=== PATIENT | male | born 1955 | race Caucasian/White ===

== ENCOUNTER 2020-03-07 11:40 | Outpatient (REF) | payer MEDICARE, MEDICAID, SELFPAY ==
--- NOTE | 2020-03-07 11:50 | XR_ITS ---
EXAMINATION: XR LUMBOSACRAL SPINE CLINICAL INFORMATION: Lumbago with sciatica COMPARISON: None TECHNIQUE: Three views of the lumbosacral spine. FINDINGS: There is no fracture or subluxation. Vertebral body height and alignment is maintained. Disc space narrowing is mild at L5-S1. Multilevel facet arthropathy. Small multilevel endplate osteophytes. The sacroiliac joints are symmetric. The sacrum appears intact. The bowel gas pattern is unremarkable. XR/XR lumbar spine 2-3V IMPRESSION: Mild multilevel degenerative changes of the lumbar spine.
== END 2020-03-07 11:41 | disposition home or self-care (01) ==
LOC: HO.XRAY 11:40
PROVIDERS: PCP Internal Medicine; Visit Provider Physician Assistant
DX: M54.41 Lumbago with sciatica, right side (principal)
CPT/HCPCS: 72100

== ENCOUNTER 2020-03-27 08:34 | Outpatient (REF) | payer MEDICARE, MEDICAID, SELFPAY ==
--- NOTE | 2020-03-27 | MR_ITS ---
EXAMINATION: MR LUMBAR SPINE WITHOUT CONTRAST CLINICAL INFORMATION: Lumbago. Sciatica. COMPARISON: Lumbar spine radiographs 03/05/2020. TECHNIQUE: MRI of the lumbar spine was obtained using routine sequences without contrast. FINDINGS: There is spinal scoliosis with a subtle leftward convex curvature centered at L3. Slight left lateral subluxation of L4 on L5. Alignment is otherwise normal in the sagittal dimension. Vertebral heights are preserved. No acute bone marrow signal changes. There is a slight loss of intervertebral disc height and T2 signal intensity at multiple levels related to disc degeneration. The tip of the conus medullaris is located at L1-L2. No mass effect on the conus. Visualized distal cord signal intensity is normal. At L1-L2 there is a shallow left central protrusion. Bilateral facet degenerative change. No canal stenosis. No mass effect on the traversing or foraminal nerve roots. At L2-L3 there is a small right subarticular protrusion superimposed upon an asymmetrically bulging disc to the left. Bilateral facet degenerative change. No canal stenosis. There is asymmetric narrowing of the right subarticular zone causing abutment and possible compression right traversing L3 nerve roots. No foraminal nerve root compression. At L3-L4 there is an asymmetrically bulging disc to the right. Bilateral facet degenerative change. No canal stenosis. No mass effect on the traversing or foraminal nerve roots. At L4-L5 there is a right subarticular protrusion superimposed upon a bulging disc. Bilateral facet degenerative change. Moderate canal stenosis. There is asymmetric narrowing of the right subarticular zone with compression right traversing L5 nerve roots. No foraminal nerve root compression. At L5-S1 there is a broad shallow central protrusion. Bilateral facet degenerative change. No canal stenosis. No substantial mass effect on the traversing or foraminal nerve roots. Limited visualization the retroperitoneal anatomy reveals no abnormal finding. Psoas and paraspinal muscle groups are symmetric. MR/MR lumbar spine wo con IMPRESSION: Multilevel degenerative spondylosis of the lumbar spine. There is a right subarticular protrusion at L4-L5 causing moderate canal stenosis and asymmetric compression of the right traversing L5 nerve roots. There is also a relatively tiny right subarticular protrusion at L2-L3 also causing abutment and possible compression right traversing L3 nerve roots as well.
== END 2020-03-27 08:35 | disposition home or self-care (01) ==
LOC: HO.MRI 08:34
PROVIDERS: Visit Provider Physician Assistant
DX: M54.41 Lumbago with sciatica, right side (principal)
CPT/HCPCS: 72148

== ENCOUNTER 2020-10-11 10:23 | Outpatient (REF) | payer MEDICARE, MEDICAID, SELFPAY ==
[2020-10-11 12:55] LABS: MANUAL DIFF FLAG NO
[2020-10-11 12:57] LABS: Basophils Percent Auto 0.5 % (0-2); Eosinophils Absolute Auto 0.2 X10*3/uL (0.0-0.4); Eosinophils Percent Auto 3.1 % (0-4); Hematocrit 49.1 % (42-52); Hemoglobin 16.4 g/dl (14.0-18.0); Imm Gran Abs Auto 0.02 X10*3/uL (0.00-0.03); Imm Gran Pct Auto 0.3 % (0.0-0.4); Lymphocytes Absolute Auto 1.7 X10*3/uL (1.2-4.9); Lymphocytes Percent Auto 27.1 % (20-40); Mean Corpuscular HGB Conc 33.4 g/dl (31.0-36.0); Mean Corpuscular Hemoglobin 31.4 pg (27.0-33.0); Mean Corpuscular Volume 94.1 fL (80-98); Mean Platelet Volume 11.2 fL (9.4-12.4); Monocytes Absolute Auto 0.8 X10*3/uL (0.1-1.2); Monocytes Percent Auto 12.9 % (2-11); Neutrophils Absolute Auto 3.6 X10*3/uL (2.0-8.3); Neutrophils Percent Auto 56.1 % (45-73); Platelet Count 264 X10*3/uL (160-400); Red Blood Count 5.22 X10*6/uL (4.60-5.80); Red Cell Distribution Width 13.6 % (11.0-16.0); White Blood Count 6.4 X10*3/uL (4.8-10.8)
[2020-10-11 13:35] LABS: Alanine Aminotransferase 28 U/L (0-40); Albumin Level 4.2 g/dL (3.5-5.0); Alkaline Phosphatase 73 U/L (39-117); Anion Gap 12 (12-20); Aspartate Amino Transferase 27 U/L (5-37); Bilirubin Total 0.6 mg/dL (0.0-1.0); Blood Urea Nitrogen 12 mg/dL (9-16); Calcium 9.4 mg/dL (8.4-10.2); Carbon Dioxide 27 mmol/L (22-29); Chloride 105 mmol/L (96-108); Cholesterol 321 mg/dL; Estimated Glomerular Filt Rate > 60; Glucose Fasting 105 mg/dL (60-99); HDL Cholesterol 57 mg/dL; LDL Cholesterol Calculated 229 mg/dl; Potassium 4.1 mmol/L (3.3-5.1); Sodium 140 mmol/L (135-145); Total Protein 7.4 g/dL (6.5-8.0); Triglycerides 176 mg/dL
[2020-10-11 13:55] LABS: Prostate Specific Antigen 0.75 ng/mL (<0.05-4.0)
== END 2020-10-11 10:24 | disposition home or self-care (01) ==
LOC: HO.MANLDS 10:23
PROVIDERS: PCP Internal Medicine; Visit Provider Internal Medicine
DX: Z00.00 Encounter for general adult medical examination without abnormal findings (principal); Z12.5 Encounter for screening for malignant neoplasm of prostate; Z13.6 Encounter for screening for cardiovascular disorders
CPT/HCPCS: 36415; 80053; 80061; 84153; 85025

== ENCOUNTER 2021-05-01 12:22 | Outpatient (REF) | payer MEDICARE, MEDICAID, SELFPAY ==
--- NOTE | ~2021-05-01 | XR_ITS ---
EXAMINATION: XR BILATERAL HIPS WITH AP PELVIS CLINICAL INFORMATION: Right hip pain COMPARISON: None TECHNIQUE: AP and frog-leg lateral views of each hip and an AP view of the pelvis. FINDINGS: No fracture or dislocation. The hips are well aligned. Mild joint space narrowing bilaterally with subchondral sclerosis. The pelvic rim is intact. The sacroiliac joints and pubic symphysis are well aligned. Normal bowel gas pattern. XR/XR hip BI w PEL1V IMPRESSION: Mild degenerative changes of both hips.
--- NOTE | ~2021-05-01 | XR_ITS ---
EXAMINATION: XR ANKLE, RIGHT CLINICAL INFORMATION: Right ankle pain COMPARISON: None TECHNIQUE: AP, lateral, and mortise views of the right ankle. FINDINGS: No fracture or dislocation. The ankle mortise is congruent. No definite ankle joint effusion. The soft tissues are unremarkable. Small Achilles heel spur. XR/XR ankle RT min 3V IMPRESSION: Small Achilles heel spur. Otherwise unremarkable appearance of the right ankle.
== END 2021-05-01 12:23 | disposition home or self-care (01) ==
LOC: HO.XRAY 12:22
PROVIDERS: PCP Internal Medicine; Visit Provider Internal Medicine
DX: M25.571 Pain in right ankle and joints of right foot (principal); M25.551 Pain in right hip
CPT/HCPCS: 73521; 73610

== ENCOUNTER 2021-07-06 11:25 | Emergency (ER) | payer MEDICARE, MEDICAID, SELFPAY ==
--- NOTE | ~2021-07-06 | CT_ITS ---
EXAMINATION: CT ABDOMEN AND PELVIS WITH CONTRAST CLINICAL INFORMATION: Abdominal hernia. Weight loss. COMPARISON: None TECHNIQUE: Multidetector volumetric images were obtained from the superior aspect of the liver through the pubic symphysis following administration 85 mL of Omnipaque 350 intravenous contrast. Sagittal and coronal reformatted images were obtained on the technologist's workstation. Oral contrast: No This CT examination was performed using dose optimization techniques as appropriate, variously including the following: *Automated exposure control *Adjustment of mA and/or kV according to patient size (this includes techniques or standardized protocols for targeted exams where dose is matched to indication/reason for exam; i.e. extremities or head) *Use of iterative reconstruction technique DLP: 349 mGy-cm FINDINGS: LUNG BASES: No suspicious abnormality in the visualized lower chest. The left ventricle appears mildly dilated. LIVER, GALLBLADDER, AND BILIARY TREE: There are several scattered tiny sharply circumscribed low attenuating liver lesions. No intrahepatic biliary dilation. The liver contour is smooth. No suspicious focal liver lesion. No opaque gallstone. No biliary dilation. PANCREAS: No suspicious abnormality. SPLEEN: Within normal limits ADRENAL GLANDS: Normal KIDNEYS AND URETERS: There is no dilation of the urinary collecting system on either side. The nephrograms are symmetric. There is no suspicious renal mass. There are tiny sharply circumscribed low attenuating right renal masses consistent with cysts. These do not require any further evaluation. No opaque urinary calculus. BLADDER: The bladder is nearly empty and not well evaluated. GASTROINTESTINAL TRACT: There are distal colonic diverticula. No localized pericolonic fat stranding. No small bowel dilation. The stomach is not well distended. There is a moderate diverticulum involving the medial aspect of the second portion of the duodenum. There is no CT evidence of appendicitis ABDOMINAL WALL: Evidence of previous midline surgery. No bowel hernia. LYMPH NODES: There are no measurably enlarged abdominal or pelvic lymph nodes. There is no free intraperitoneal fluid VASCULAR: There is atherosclerotic calcification. There is no abdominal aortic aneurysm. The portal vein enhances. There is no free intraperitoneal fluid PELVIC VISCERA: No suspicious abnormality the prostate. The seminal vesicles are distended but symmetric. OSSEOUS STRUCTURES: No suspicious focal lesion CT/CT abdomen pelvis w con IMPRESSION: No acute abnormality. There is no etiology for weight loss demonstrated. There are no enlarged lymph nodes or free intraperitoneal fluid. No bowel hernia demonstrated
[2021-07-06 12:28] VITALS: BP 160/92; PULSE 88; RESP 16; TEMP 36.2; O2SAT 98; BMI 19.0
[2021-07-06 12:55] LABS: MANUAL DIFF FLAG NO
[2021-07-06 12:58] LABS: Appearance Urine CLEAR; Basophils Percent Auto 0.5 % (0-2); Color Urine YELLOW; Eosinophils Absolute Auto 0.1 X10*3/uL (0.0-0.4); Eosinophils Percent Auto 0.7 % (0-4); Glucose Urine UA NEG (NEG); Hematocrit 53.1 % (42.0-52.0); Hemoglobin 17.5 g/dl (14.0-18.0); Imm Gran Abs Auto 0.01 X10*3/uL (0.00-0.03); Imm Gran Pct Auto 0.1 % (0.0-0.4); Leukocyte Esterase Urine NEG (NEG); Lymphocytes Absolute Auto 1.7 X10*3/uL (1.2-4.9); Lymphocytes Percent Auto 22.8 % (20-40); Mean Corpuscular Hemoglobin 30.9 pg (27.0-33.0); Mean Corpuscular Volume 93.7 fL (80.0-98.0); Mean Platelet Volume 10.6 fL (9.4-12.4); Monocytes Absolute Auto 0.9 X10*3/uL (0.1-1.2); Monocytes Percent Auto 11.9 % (2-11); Neutrophils Absolute Auto 4.8 x10*3/uL (2.0-8.3); Nitrite Urine NEG (NEG); Platelet Count 295 X10*3/uL (160-400); Red Blood Count 5.67 X10*6/uL (4.60-5.80); Red Cell Distribution Width 13.7 % (11.0-16.0); Specific Gravity - Urine >= 1.030 (1.005-1.025); UACC Culture Trigger NO; Urine Blood TRACE (NEG); Urine Ketones >=80 MG/DL (NEG); Urine Protein NEG (NEG-TRACE); White Blood Count 7.6 X10*3/uL (4.8-10.8)
[2021-07-06 13:06] LABS: RBC Urine 0-2 /HPF (0); Squamous Epithelial Cell Urine TRACE /LPF; WBC Urine 0 /HPF (0-4)
[2021-07-06 13:14] LABS: Anion Gap 15 (12-20); Blood Urea Nitrogen 10 mg/dL (9-16); Carbon Dioxide 29 mmol/L (22-29); Chloride 100 mmol/L (96-108); Creatinine Clr Calc Pharmacy 70.3; Estimated Glomerular Filt Rate > 60; Glucose Random 114 mg/dL (60-115); Sodium 139 mmol/L (135-145)
[2021-07-06 15:49] VITALS: BP 155/76; PULSE 58; RESP 20; TEMP 37.8; O2SAT 98
--- NOTE | 2021-07-06 15:50 | ED_ITS ---
HPI - General Adult General Chief complaint: General Medical <GISELLE Kingston - Last Filed: 07/06/21 18:45> Stated complaint: multiple pain crisis <GISELLE Kingston Last Filed: 07/06/21 18:45> Time Seen by Provider: 07/06/21 14:02 <GISELLE Kingston Last Filed: 07/06/21 18:45> Source: patient <GISELLE Kingston Last Filed: 07/06/21 18:45> Mode of arrival: ambulatory <GISELLE Kingston Last Filed: 07/06/21 18:45> History of Present Illness HPI narrative: 66-year-old male with past medical history of depression, yahaira, p resenting to the ED complaining of manic episode x a few weeks, acute on chronic abdominal pain due to known hernia, and diarrhe.a Reports decreased p.o. intake due to forgetting to eat, states he gets distracted in the middle of cooking and will leave stove on, has come back to his house full of smoke. Admits to 30lb weight loss in 6 weeks & decreased sleep. States hernia is reducible, self red uces. Denies fever, chills, nausea, vomiting, CP/SOB, SI/HI. Reports occasional ETOH and cocaine use, denies using recently <GISELLE Kingston Last Filed: 07/06/21 18:45> Onset (ago): week(s) <GISELLE Kingston Last Filed: 07/06/21 18:45> Related Data Allergies/adverse reactions: Allergies Allergy/AdvReac Type Severity Reaction Status Date / Time No Known Allergies Allergy Verified 07/06/21 12:28 [No Known Allergies*] <GISELLE Kingston Last Filed: 07/06/21 18:45> Review of Systems Review of Systems: Constitutional: + Weight loss, No Fever, No Chills, No Night Sweats, No Fatigue, No Malaise ENT/Mouth: No Ear Pain, No Nasal Congestion, No sore throat, No Rhinorrhea, No Swallowing Difficulty Eyes: No Eye Pain, No Swelling, No Redness Cardiovascular: No Chest Pain, No SOB, No Edema, No Palpitations Respiratory: No Cough, No Sputum, No Dyspnea Gastrointestinal: No Nausea, No Vomiting, + Diarrhea, No Constipation, + Abdominal pain Genitourinary: No irregular bleeding, No Dysuria, No Urinary Frequency, No Hematuria, No Flank Pain Musculoskeletal: No joint pain, No Myalgias, No Joint Swelling Skin: No Skin Lesions, No rash Neuro: No Weakness, No Numbness, No Dizziness, No Headache Psych: + Anxiety/Panic, +Manic, No Depression, No SI/HI/AH/VH, No Social Issues <GISELLE Kingston - Last Filed: 07/06/21 18:45> Yes all other systems are reviewed and are negative <GISELLE Kingston - Last Filed: 07/06/21 18:45> [facility] Past Medical History Attestation statement: The following information was validated with the patient. <GISELLE Kingston - Last Filed: 07/06/21 18:45> Medical History: Medical History Depression Hernia of abdominal wall History of scarlet fever Yahaira <GISELLE Kingston - Last Filed: 07/06/21 18:45> Social History Social History: Social History Advance Directives: No Advance Directives Information Provided: No <GISELLE Kingston - Last Filed: 07/06/21 18:45> Physical Exam ED Vital Signs: Vital Signs - 24 hr 07/06/21 12:28 07/06/21 15:49 07/06/21 17:18 Temperature 97.2 F 100.1 F 98.2 F Pulse Rate 88 58 60 Respiratory Rate 16 20 18 Blood Pressure 160/92 H 155/76 H 145/84 H Pulse Oximetry 98 98 95 07/06/21 19:45 Temperature 99.3 F Pulse Rate 91 Respiratory Rate 18 Blood Pressure 120/66 Pulse Oximetry 95 BMI result Body Mass Index 19.0 <GISELLE Kingston - Last Filed: 07/06/21 18:45> Vital Signs - 24 hr 07/06/21 12:28 07/06/21 15:49 07/06/21 17:18 Temperature 97.2 F 100.1 F 98.2 F Pulse Rate 88 58 60 Respiratory Rate 16 20 18 Blood Pressure 160/92 H 155/76 H 145/84 H Pulse Oximetry 98 98 95 07/06/21 19:45 Temperature 99.3 F Pulse Rate 91 Respiratory Rate 18 Blood Pressure 120/66 Pulse Oximetry 95 BMI result Body Mass Index 19.0 <GISELLE Hairston Last Filed: 07/06/21 22:20> Const General: cooperative and no acute distress <GISELLE Kingston Last Filed: 07/06/21 18:45> Nutritional Appearance: thin and underweight <GISELLE Kingston Last Filed: 07/06/21 18:45> Orientation/consciousness: patient oriented x3 <GISELLE Kingston Last Filed: 07/06/21 18:45> Limitations: no limitations <GISELLE Kingston Last Filed: 07/06/21 18:45> HENMT Head: Yes normal to inspection and Yes atraumatic <GISELLE Kingston Last Filed: 07/06/21 18:45> Ears: hearing grossly normal bilaterally <GISELLE Kingston Last Filed: 07/06/21 18:45> General nose exam: Normal external nose present <GISELLE Kingston Last Filed: 07/06/21 18:45> Face and sinus: Yes normal facial exam <GISELLE Kingston Last Filed: 07/06/21 18:45> Eyes General: appearance normal, both eyes and all related structures <GISELLE Kingston Last Filed: 07/06/21 18:45> EOM: EOMs intact bilaterally <GISELLE Kingston Last Filed: 07/06/21 18:45> Neck Neck: Yes normal visual inspection and Yes no meningeal signs <GISELLE Kingston Last Filed: 07/06/21 18:45> Resp Effort & Inspection: normal respiratory effort and no respiratory distress <GISELLE Kingston Last Filed: 07/06/21 18:45> Auscultation: clear to auscultation bilaterally, no rales, no rhonchi and no wheezes <GISELLE Kingston Last Filed: 07/06/21 18:45> Cardio Rate: regular rate <Yaneth Barth PA - Last Filed: 07/06/21 18:45> Heart sounds: S1 normal heart sound present and S2 normal heart sound present <Yaneth Barth PA - Last Filed: 07/06/21 18:45> GI Other: No appreciable hernia on exam <Yaneth Barth PA - Last Filed: 07/06/21 18:45> Inspection: Yes normal to inspection and No distended <Yaneth Barth PA - Last Filed: 07/06/21 18:45> Palpation (GI): Soft to palpation, Tenderness to palpation present (GI) in the LLQ and in the LUQ, no guarding and not rigid <Yaneth Barth PA - Last Filed: 07/06/21 18:45> General: Yes no CVA tenderness <Yaneth Barth, PA - Last Filed: 07/06/21 18:45> Back/Spine/Pelvis Back: no CVA tenderness <Yaneth Barth PA - Last Filed: 07/06/21 18:45> Skin Rashes: no rashes <Yaneth Barth PA - Last Filed: 07/06/21 18:45> Wounds: no wounds <Yaneth Barth PA - Last Filed: 07/06/21 18:45> Neuro General: patient oriented x3, tone normal, moves all extremities and no meningeal signs <Yaneth Barth PA - Last Filed: 07/06/21 18:45> Gait exam (Neuro): Normal gait present <Yaneth Barth PA - Last Filed: 07/06/21 18:45> Extrem General: Yes normal to inspection <Yaneth Barth PA - Last Filed: 07/06/21 18:45> Psych Appearance: well kempt <Yaneth Barth PA - Last Filed: 07/06/21 18:45> Speech and movement: Pressured speech present <Yaneth Barth PA - Last Filed: 07/06/21 18:45> Attitude: cooperative <Yaneth Barth PA - Last Filed: 07/06/21 18:45> Thought process: Racing thoughts present <Yaneth Barth PA - Last Filed: 07/06/21 18:45> Thought content: suicidality and no homicidality <GISELLE Kingston Last Filed: 07/06/21 18:45> Insight: Good insight present (Psych) <GISELLE Kingston Last Filed: 07/06/21 18:45> Judgement: Good judgement present (Psych) <GISELLE Kingston Last Filed: 07/06/21 18:45> Course Course Course Narrative: -no leukocytosis. Lactic acid negative. Labs otherwise unremarkable. UA negative -COVID-19 negative 1841--CT abdomen pelvis w con IMPRESSION: No acute abnormality. There is no etiology for weight loss demonstrated. There are no enlarged lymph nodes or free intraperitoneal fluid. No bowel hernia demonstrated? > patient is medically cleared for crisis evaluation. Physician observation initiated at [id number]--ED care transferred to GISELLE Valentin pending crisis eval <GISELLE Kingston Last Filed: 07/06/21 18:45> Reevaluation(s) Reevaluation #1: Was reported to me that patient wanted to leave. I was going to go speak to patient however by the time I got up to go speak to him patient eloped. He denied SI and HI to the nurse. And upon chart review it appears as though patient denied SI and HI to previous provider. <GISELLE Hairston - Last Filed: 07/06/21 22:20> Time: 22:20 <GISELLE Hairston - Last Filed: 07/06/21 22:20> Medical Decision Making [facility] Narrative Medical decision making narrative: 66-year-old male with past medical history of depression, yahaira, presenting to the ED complaining of manic episode x a few weeks, acute on chronic abdominal pain due to known hernia, and diarrhea. On exam vital signs stable, NAD, physical exam as above, patient appears manic, abdomen soft diffusely tender, no appreciable hernia at this time. Concern for anorexia causing weight loss rather than metastatic process. Rule out intra-abdominal pathology including diverticulitis/appendicitis vs incarcerated/strangulated hernia although of lower concern due to chronicity. Plan: Labs, UA, IVF, drug screen, CT abdomen/pelvis, crisis eval <GISELLE Kingston Last Filed: 07/06/21 18:45> Medical Records Medical records reviewed: Yes I reviewed the patient's medical records. <GISELLE Kingston - Last Filed: 07/06/21 18:45> Lab Data Lab results reviewed: Yes I reviewed the patient's lab results. <GISELLE Kingston - Last Filed: 07/06/21 18:45> Result diagrams: : 07/06/21 12:49 07/06/21 12:49 <GISELLE Kingston - Last Filed: 07/06/21 18:45> Labs: Lab Results 07/06/21 07/06/21 07/06/21 Range/Units 12:49 12:49 12:49 WBC 7.6 (4.8-10.8) X10*3/uL RBC 5.67 (4.60-5.80) X10*6/uL Hgb 17.5 (14.0-18.0) g/dl Hct 53.1 H (42.0-52.0) % MCV 93.7 (80.0-98.0) fL MCH 30.9 (27.0-33.0) pg MCHC 33.0 (31.0-36.0) g/dl RDW 13.7 (11.0-16.0) % Plt Count 295 (160-400) X10*3/uL MPV 10.6 (9.4-12.4) fL Immature Gran % (Auto) 0.1 (0.0-0.4) % Neut % (Auto) 64.0 (45-73) % Lymph % (Auto) 22.8 (20-40) % [place] % (Auto) 11.9 H (2-11) % Eos % (Auto) 0.7 (0-4) % Baso % (Auto) 0.5 (0-2) % Lymph # (Auto) 1.7 (1.2-4.9) X10*3/uL [place] # (Auto) 0.9 (0.1-1.2) X10*3/uL Eos # (Auto) 0.1 (0.0-0.4) X10*3/uL Baso # (Auto) 0.0 (0.0-0.2) X10*3/uL Abs Immat Gran (auto) 0.01 (0.00-0.03) X10*3/uL Absolute Neuts (auto) 4.8 (2.0-8.3) x10*3/uL Absolute Nucleated RBC 0.000 (0.0-0.012) X10*3/uL Nucleated RBC % (auto) 0.0 (0.0-0.2) /100WBC Sodium 139 (135-145) mmol/L Potassium 5.0 D (3.3-5.1) mmol/L Chloride 100 (96-108) mmol/L Carbon Dioxide 29 (22-29) mmol/L Anion Gap 15 (12-20) BUN 10 (9-16) mg/dL Creatinine 0.88 (0.5-1.4) mg/dL Estim Creat Clear Calc 70.3 Estimated GFR > 60 Random Glucose 114 (60-115) mg/dL Lactic Acid (0.5-2.0) mmol/L Calcium 10.0 D (8.4-10.2) mg/dL Magnesium 2.3 (1.6-2.6) mg/dL Total Bilirubin 0.8 (0.0-1.0) mg/dL Direct Bilirubin 0.3 (0.0-0.5) mg/dL AST 29 (5-37) U/L ALT 24 (0-40) U/L Alkaline Phosphatase 92 D (39-117) U/L Total Protein 7.6 (6.5-8.0) g/dL Albumin 4.2 (3.5-5.0) g/dL Lipase 23 (8-78) U/L Urine Color YELLOW Urine Appearance CLEAR Urine pH 6.0 (5.0-8.0) Ur Specific [place] >= 1.030 H (1.005-1.025) Urine Protein NEG (NEG-TRACE) MG/DL Urine Glucose (UA) NEG (NEG) MG/DL Urine Ketones >=80 (NEG) MG/DL Urine Blood TRACE (NEG) Urine Nitrite NEG (NEG) Ur Leukocyte Esterase NEG (NEG) Urine RBC 0-2 (0) /HPF Urine WBC 0 (0-4) /HPF Ur Squamous Epith Cells TRACE /LPF Urine Bacteria NONE /LPF COVID-19 (TESS) (Negative) COVID-19 Clin Com 07/06/21 07/06/21 Range/Units 15:43 15:57 WBC (4.8-10.8) X10*3/uL RBC (4.60-5.80) X10*6/uL Hgb (14.0-18.0) g/dl Hct (42.0-52.0) % MCV (80.0-98.0) fL MCH (27.0-33.0) pg MCHC (31.0-36.0) g/dl RDW (11.0-16.0) % Plt Count (160-400) X10*3/uL MPV (9.4-12.4) fL Immature Gran % (Auto) (0.0-0.4) % Neut % (Auto) (45-73) % Lymph % (Auto) (20-40) % [place] % (Auto) (2-11) % Eos % (Auto) (0-4) % Baso % (Auto) (0-2) % Lymph # (Auto) (1.2-4.9) X10*3/uL [place] # (Auto) (0.1-1.2) X10*3/uL Eos # (Auto) (0.0-0.4) X10*3/uL Baso # (Auto) (0.0-0.2) X10*3/uL Abs Immat Gran (auto) (0.00-0.03) X10*3/uL Absolute Neuts (auto) (2.0-8.3) x10*3/uL Absolute Nucleated RBC (0.0-0.012) X10*3/uL Nucleated RBC % (auto) (0.0-0.2) /100WBC Sodium (135-145) mmol/L Potassium (3.3-5.1) mmol/L Chloride (96-108) mmol/L Carbon Dioxide (22-29) mmol/L Anion Gap (12-20) BUN (9-16) mg/dL Creatinine (0.5-1.4) mg/dL Estim Creat Clear Calc Estimated GFR Random Glucose (60-115) mg/dL Lactic Acid 1.3 (0.5-2.0) mmol/L Calcium (8.4-10.2) mg/dL Magnesium (1.6-2.6) mg/dL Total Bilirubin (0.0-1.0) mg/dL Direct Bilirubin (0.0-0.5) mg/dL AST (5-37) U/L ALT (0-40) U/L Alkaline Phosphatase (39-117) U/L Total Protein (6.5-8.0) g/dL Albumin (3.5-5.0) g/dL Lipase (8-78) U/L Urine Color Urine Appearance Urine pH (5.0-8.0) Ur Specific [place] (1.005-1.025) Urine Protein (NEG-TRACE) MG/DL Urine Glucose (UA) (NEG) MG/DL Urine Ketones (NEG) MG/DL Urine Blood (NEG) Urine Nitrite (NEG) Ur Leukocyte Esterase (NEG) Urine RBC (0) /HPF Urine WBC (0-4) /HPF Ur Squamous Epith Cells /LPF Urine Bacteria /LPF COVID-19 (TESS) Negative (Negative) COVID-19 Clin Com See Note <GISELLE Kingston - Last Filed: 07/06/21 18:45> Lab Results 07/06/21 07/06/21 07/06/21 Range/Units 12:49 12:49 12:49 WBC 7.6 (4.8-10.8) X10*3/uL RBC 5.67 (4.60-5.80) X10*6/uL Hgb 17.5 (14.0-18.0) g/dl Hct 53.1 H (42.0-52.0) % MCV 93.7 (80.0-98.0) fL MCH 30.9 (27.0-33.0) pg MCHC 33.0 (31.0-36.0) g/dl RDW 13.7 (11.0-16.0) % Plt Count 295 (160-400) X10*3/uL MPV 10.6 (9.4-12.4) fL Immature Gran % (Auto) 0.1 (0.0-0.4) % Neut % (Auto) 64.0 (45-73) % Lymph % (Auto) 22.8 (20-40) % [place] % (Auto) 11.9 H (2-11) % Eos % (Auto) 0.7 (0-4) % Baso % (Auto) 0.5 (0-2) % Lymph # (Auto) 1.7 (1.2-4.9) X10*3/uL [place] # (Auto) 0.9 (0.1-1.2) X10*3/uL Eos # (Auto) 0.1 (0.0-0.4) X10*3/uL Baso # (Auto) 0.0 (0.0-0.2) X10*3/uL Abs Immat Gran (auto) 0.01 (0.00-0.03) X10*3/uL Absolute Neuts (auto) 4.8 (2.0-8.3) x10*3/uL Absolute Nucleated RBC 0.000 (0.0-0.012) X10*3/uL Nucleated RBC % (auto) 0.0 (0.0-0.2) /100WBC Sodium 139 (135-145) mmol/L Potassium 5.0 D (3.3-5.1) mmol/L Chloride 100 (96-108) mmol/L Carbon Dioxide 29 (22-29) mmol/L Anion Gap 15 (12-20) BUN 10 (9-16) mg/dL Creatinine 0.88 (0.5-1.4) mg/dL Estim Creat Clear Calc 70.3 Estimated GFR > 60 Random Glucose 114 (60-115) mg/dL Lactic Acid (0.5-2.0) mmol/L Calcium 10.0 D (8.4-10.2) mg/dL Magnesium 2.3 (1.6-2.6) mg/dL Total Bilirubin 0.8 (0.0-1.0) mg/dL Direct Bilirubin 0.3 (0.0-0.5) mg/dL AST 29 (5-37) U/L ALT 24 (0-40) U/L Alkaline Phosphatase 92 D (39-117) U/L Total Protein 7.6 (6.5-8.0) g/dL Albumin 4.2 (3.5-5.0) g/dL Lipase 23 (8-78) U/L Urine Color YELLOW Urine Appearance CLEAR Urine pH 6.0 (5.0-8.0) Ur Specific [place] >= 1.030 H (1.005-1.025) Urine Protein NEG (NEG-TRACE) MG/DL Urine Glucose (UA) NEG (NEG) MG/DL Urine Ketones >=80 (NEG) MG/DL Urine Blood TRACE (NEG) Urine Nitrite NEG (NEG) Ur Leukocyte Esterase NEG (NEG) Urine RBC 0-2 (0) /HPF Urine WBC 0 (0-4) /HPF Ur Squamous Epith Cells TRACE /LPF Urine Bacteria NONE /LPF COVID-19 (TESS) (Negative) COVID-19 Clin Com 07/06/21 07/06/21 Range/Units 15:43 15:57 WBC (4.8-10.8) X10*3/uL RBC (4.60-5.80) X10*6/uL Hgb (14.0-18.0) g/dl Hct (42.0-52.0) % MCV (80.0-98.0) fL MCH (27.0-33.0) pg MCHC (31.0-36.0) g/dl RDW (11.0-16.0) % Plt Count (160-400) X10*3/uL MPV (9.4-12.4) fL Immature Gran % (Auto) (0.0-0.4) % Neut % (Auto) (45-73) % Lymph % (Auto) (20-40) % [place] % (Auto) (2-11) % Eos % (Auto) (0-4) % Baso % (Auto) (0-2) % Lymph # (Auto) (1.2-4.9) X10*3/uL [place] # (Auto) (0.1-1.2) X10*3/uL Eos # (Auto) (0.0-0.4) X10*3/uL Baso # (Auto) (0.0-0.2) X10*3/uL Abs Immat Gran (auto) (0.00-0.03) X10*3/uL Absolute Neuts (auto) (2.0-8.3) x10*3/uL Absolute Nucleated RBC (0.0-0.012) X10*3/uL Nucleated RBC % (auto) (0.0-0.2) /100WBC Sodium (135-145) mmol/L Potassium (3.3-5.1) mmol/L Chloride (96-108) mmol/L Carbon Dioxide (22-29) mmol/L Anion Gap (12-20) BUN (9-16) mg/dL Creatinine (0.5-1.4) mg/dL Estim Creat Clear Calc Estimated GFR Random Glucose (60-115) mg/dL Lactic Acid 1.3 (0.5-2.0) mmol/L Calcium (8.4-10.2) mg/dL Magnesium (1.6-2.6) mg/dL Total Bilirubin (0.0-1.0) mg/dL Direct Bilirubin (0.0-0.5) mg/dL AST (5-37) U/L ALT (0-40) U/L Alkaline Phosphatase (39-117) U/L Total Protein (6.5-8.0) g/dL Albumin (3.5-5.0) g/dL Lipase (8-78) U/L Urine Color Urine Appearance Urine pH (5.0-8.0) Ur Specific [place] (1.005-1.025) Urine Protein (NEG-TRACE) MG/DL Urine Glucose (UA) (NEG) MG/DL Urine Ketones (NEG) MG/DL Urine Blood (NEG) Urine Nitrite (NEG) Ur Leukocyte Esterase (NEG) Urine RBC (0) /HPF Urine WBC (0-4) /HPF Ur Squamous Epith Cells /LPF Urine Bacteria /LPF COVID-19 (TESS) Negative (Negative) COVID-19 Clin Com See Note <GISELLE Hairston - Last Filed: 07/06/21 22:20> Discharge Plan Discharge Clinical Impression: Yahaira, Weight loss, Abdominal pain <GISELLE Kingston - Last Filed: 07/06/21 18:45> Patient Disposition: Elopement <GISELLE Kingston - Last Filed: 07/06/21 18:45>
[2021-07-06 15:57] LABS: Alanine Aminotransferase 24 U/L (0-40); Albumin Level 4.2 g/dL (3.5-5.0); Alkaline Phosphatase 92 U/L (39-117); Aspartate Amino Transferase 29 U/L (5-37); Bilirubin Direct 0.3 mg/dL (0.0-0.5); Bilirubin Total 0.8 mg/dL (0.0-1.0); Lipase 23 U/L (8-78); Magnesium 2.3 mg/dL (1.6-2.6); Total Protein 7.6 g/dL (6.5-8.0)
[2021-07-06 16:16] LABS: COVID-19 Test Negative (Negative); IDNOW Serial# 55D5AD1C
[2021-07-06 16:22] LABS: Lactic Acid 1.3 mmol/L (0.5-2.0)
[2021-07-06] MEDS: iohexoL 350 MG/ML 100 ML INFUS..BTL IV (16:40)
[2021-07-06 17:18] VITALS: BP 145/84; PULSE 60; RESP 18; TEMP 36.8; O2SAT 95
--- NOTE | 2021-07-06 17:20 | PC.NURSE ---
patient a&ox3, iv previously inserted, covid swab obtain, lab drawn, vss, pt had ct scan performed and awaiting results, will continue to monitor.
[2021-07-06] MEDS: Cyclobenzaprine HCl 5 MG TABLET PO (19:17)
--- NOTE | 2021-07-06 19:18 | PC.NURSE ---
pt medicated per order for 5/10 leg cramps
[2021-07-06 19:45] VITALS: BP 120/66; PULSE 91; RESP 18; TEMP 37.4; O2SAT 95
--- NOTE | 2021-07-06 19:46 | PC.NURSE ---
patient a7ox3, vss, pt previously medicated for bilateral leg cramps, call almanza within reach, will continue to monitor.
--- NOTE | 2021-07-06 22:23 | PC.NURSE ---
pt was upset for waiting, pt got dressed and stated he was going to so to be seen, provider notified, iv found on floor, pt eloped.
== END 2021-07-06 22:25 | disposition left against medical advice (07) ==
PROVIDERS: Physician Assistant; Emergency Provider Student in an Organized Health Care Education/Training Program; PCP Internal Medicine
DX: F33.1 Major depressive disorder, recurrent, moderate (principal); M79.10 Myalgia, unspecified site; R10.9 Unspecified abdominal pain; R63.4 Abnormal weight loss; Z20.822 Contact with and (suspected) exposure to COVID-19; Z79.899 Other long term (current) drug therapy
CPT/HCPCS: 36415; 74177; 80048; 80076; 81001; 83605; 83690; 83735; 85025; 87635; 99284; Q9967

== ENCOUNTER 2021-07-11 15:14 | Emergency (ER) | payer MEDICARE, MEDICAID, SELFPAY ==
[2021-07-11 15:31] VITALS: BP 160/90; BP 187/118; PULSE 105; PULSE 86; RESP 16; TEMP 37.2; O2SAT 99; BMI 26.9
--- NOTE | 2021-07-11 15:42 | ED.GENADULT ---
HPI - General Adult General Chief complaint: Psychiatric Symptoms Stated complaint: crisis eval Time Seen by Provider: 07/11/21 15:42 Source: patient Mode of arrival: ambulatory Limitations: no limitations History of Present Illness HPI narrative: Patient is a 66 year old male presenting to the emergency department today feeling manic. Patient states that he has a history of bipolar disorder and is living in his truck currently. Patient denies any dizziness, lightheadedness, abdominal pain, nausea, vomiting, fever, chills, blurry vision, double vision, loss of vision, chest pain, difficulty breathing, shortness of breath, back pain, night sweats, pain with urination, increased urinary frequency, increased urinary urgency, blood in his urine or stool, syncope or a near syncopal episode, recent trauma or falls, bowel incontinence, bladder incontinence, bowel retention, bladder retention, or any other complaints at this time. Patient denies any SI or HI at this time. Onset (ago): day(s) Relieving factors: none Exacerbating factors: none Associated symptoms: denies other symptoms Treatments prior to arrival: none Related Data Allergies Allergy/AdvReac Type Severity Reaction Status Date / Time No Known Allergies Allergy Verified 07/06/21 12:28 [No Known Allergies*] Review of Systems Constitutional: Constitutional: Reports no additional constitutional complaints, Denies chills, Denies fever(s) and Denies night sweats Eyes: Eyes: Reports no additional eye complaints, Denies blurry vision, Denies change in vision, Denies diplopia, Denies eye discharge, Denies loss of vision and Denies eye pain ENT: Denies dizziness Cardiovascular: Cardiovascular: Reports no additional cardiovascular complaints, Denies chest pain, Denies lightheadedness, Denies Loss of Consciousness and Denies dyspnea Respiratory: Respiratory: Reports no additional respiratory complaints and Denies dyspnea Gastrointestinal: Gastrointestinal: Reports no additional gastrointestinal complaints, Denies abdominal pain, Denies melena, Denies hematochezia, Denies change in bowel habits and Denies change in stool character Genitourinary: Genitourinary: Reports no additional male genitourinary complaints, Denies hematuria, Denies oliguria, Denies difficulty urinating, Denies dysuria, Denies urinary frequency, Denies urinary hesitancy, Denies urinary incontinence and Denies urinary urgency Musculoskeletal: Musculoskeletal: Reports no additional musculoskeletal complaints, Denies numbness and Denies tingling Neurologic: Reports behavioral changes, Denies dizziness, Denies loss of vision, Denies numbness and Denies tingling Psychiatric: Psychiatric: Reports behavioral changes Endocrine: Endocrine: Reports no additional endocrine complaints Hematologic/Lymphatic: Hematologic/Lymphatic: Reports no additional hematologic/lymphatic complaints Allergic/Immunologic: Allergic/Immunologic: Reports no additional allergic/immunologic complaints PMFSH Past Medical History Attestation statement: The following information was validated with the patient. Source: old records reviewed Medical History Depression Hernia of abdominal wall History of scarlet fever Christa Social History Social History Advance Directives: No Advance Directives Information Provided: No Physical Exam ED Vital Signs: Vital Signs - 24 hr 07/11/21 15:31 Temperature 99 F Pulse Rate 105 H Respiratory Rate 16 Blood Pressure 187/118 H Pulse Oximetry 99 BMI result Body Mass Index 26.9 Const General: cooperative, no acute distress, alert and awake Nutritional Appearance: well nourished Orientation/consciousness: patient oriented x3 Limitations: no limitations HENMT Head: Yes normal to inspection and Yes atraumatic Ears: hearing grossly normal bilaterally and external ears normal General nose exam: Normal external nose present, no nasal discharge noted and no epistaxis Face and sinus: Yes normal facial exam, No abrasion and No laceration Mouth: Normal oral and palatal mucosa present, no drooling and no muffled voice Eyes General: appearance normal, both eyes and all related structures Periorbital: periorbital findings normal Eyelids: Yes eyelids normal Conjunctivae: conjunctivae normal Pupils: Equal, round and reactive pupils present EOM: EOMs intact bilaterally Neck Neck: Yes normal visual inspection, Yes full ROM and Yes no lymphadenopathy Chest Chest palpation & inspection: normal inspection of the chest Resp Effort & Inspection: normal respiratory effort and able to speak in complete sentences Auscultation: clear to auscultation bilaterally Cardio Rate: regular rate Rhythm: regular rhythm GI Inspection: Yes normal to inspection Neuro General: patient oriented x3 and moves all extremities Cranial nerves: Yes Equal, round and reactive pupils present Cognition (Neuro): normal cognition Motor exam (neuro): 5/5 motor strength present throughout Sensory Exam: Normal double simultaneous stimulation for sensation Coordination: [id number] test normal Extrem General: Yes normal to inspection, Yes full ROM and Yes capillary refill normal Psych Appearance: grossly normal Mental Status: mental status grossly normal Affect: Animated affect present Attitude: cooperative Thought process: Flight of ideas present Thought content: Normal thought content present Insight: Good insight present (Psych) Medical Decision Making MDM Narrative Medical decision making narrative: Patient is a 66 year old male presenting to the emergency department today with a manic episode. Patient's physical exam showed an obviously manic individual. Patient's blood work was unremarkable. I explained my physical exam findings as well as all test results to the patient. I answered all questions asked by the patient. Patient entered physician observation at 1728. Patient is still awaiting N/Crisis evaluation. Differential Diagnosis Differential Diagnosis: christa, bipolar disorder Medical Records Medical records reviewed: Yes I reviewed the patient's medical records. Lab Data Lab results reviewed: Yes I reviewed the patient's lab results. Result diagrams: 07/11/21 16:09 07/11/21 16:09 Labs: Lab Results 07/11/21 07/11/21 07/11/21 Range/Units 16:09 16:09 16:09 WBC 6.9 (4.8-10.8) X10*3/uL RBC 5.33 (4.60-5.80) X10*6/uL Hgb 16.5 (14.0-18.0) g/dl Hct 49.2 (42.0-52.0) % MCV 92.3 (80.0-98.0) fL MCH 31.0 (27.0-33.0) pg MCHC 33.5 (31.0-36.0) g/dl RDW 13.6 (11.0-16.0) % Plt Count 245 (160-400) X10*3/uL MPV 10.5 (9.4-12.4) fL Immature Gran % (Auto) 0.4 (0.0-0.4) % Neut % (Auto) 61.2 (45-73) % Lymph % (Auto) 25.2 (20-40) % [place] % (Auto) 11.8 H (2-11) % Eos % (Auto) 0.7 (0-4) % Baso % (Auto) 0.7 (0-2) % Lymph # (Auto) 1.7 (1.2-4.9) X10*3/uL [place] # (Auto) 0.8 (0.1-1.2) X10*3/uL Eos # (Auto) 0.1 (0.0-0.4) X10*3/uL Baso # (Auto) 0.1 (0.0-0.2) X10*3/uL Abs Immat Gran (auto) 0.03 (0.00-0.03) X10*3/uL Absolute Neuts (auto) 4.2 (2.0-8.3) x10*3/uL Absolute Nucleated RBC 0.000 (0.0-0.012) X10*3/uL Nucleated RBC % (auto) 0.0 (0.0-0.2) /100WBC Sodium 139 (135-145) mmol/L Potassium 4.2 (3.3-5.1) mmol/L Chloride 102 (96-108) mmol/L Carbon Dioxide 29 (22-29) mmol/L Anion Gap 12 (12-20) BUN 15 (9-16) mg/dL Creatinine 0.81 (0.5-1.4) mg/dL Estim Creat Clear Calc 92.6 Estimated GFR > 60 Random Glucose 100 (60-115) mg/dL Calcium 9.8 (8.4-10.2) mg/dL Total Bilirubin 0.3 (0.0-1.0) mg/dL AST 29 (5-37) U/L ALT 24 (0-40) U/L Alkaline Phosphatase 71 D (39-117) U/L Total Protein 7.0 (6.5-8.0) g/dL Albumin 4.0 (3.5-5.0) g/dL Urine Opiates Screen (Not Detect) Urine Fentanyl Screen (Not Detect) Ur Barbiturates Screen (Not Detect) Ur Phencyclidine Scrn (Not Detect) Ur Amphetamines Screen (Not Detect) U Benzodiazepines Scrn (Not Detect) Urine Cocaine Screen (Not Detect) U Marijuana (THC) Screen (Not Detect) Ethyl Alcohol < 10 mg/dL COVID-19 (TESS) (Negative) COVID-19 Clin Com 07/11/21 07/11/21 Range/Units 16:09 16:09 WBC (4.8-10.8) X10*3/uL RBC (4.60-5.80) X10*6/uL Hgb (14.0-18.0) g/dl Hct (42.0-52.0) % MCV (80.0-98.0) fL MCH (27.0-33.0) pg MCHC (31.0-36.0) g/dl RDW (11.0-16.0) % Plt Count (160-400) X10*3/uL MPV (9.4-12.4) fL Immature Gran % (Auto) (0.0-0.4) % Neut % (Auto) (45-73) % Lymph % (Auto) (20-40) % [place] % (Auto) (2-11) % Eos % (Auto) (0-4) % Baso % (Auto) (0-2) % Lymph # (Auto) (1.2-4.9) X10*3/uL [place] # (Auto) (0.1-1.2) X10*3/uL Eos # (Auto) (0.0-0.4) X10*3/uL Baso # (Auto) (0.0-0.2) X10*3/uL Abs Immat Gran (auto) (0.00-0.03) X10*3/uL Absolute Neuts (auto) (2.0-8.3) x10*3/uL Absolute Nucleated RBC (0.0-0.012) X10*3/uL Nucleated RBC % (auto) (0.0-0.2) /100WBC Sodium (135-145) mmol/L Potassium (3.3-5.1) mmol/L Chloride (96-108) mmol/L Carbon Dioxide (22-29) mmol/L Anion Gap (12-20) BUN (9-16) mg/dL Creatinine (0.5-1.4) mg/dL Estim Creat Clear Calc Estimated GFR Random Glucose (60-115) mg/dL Calcium (8.4-10.2) mg/dL Total Bilirubin (0.0-1.0) mg/dL AST (5-37) U/L ALT (0-40) U/L Alkaline Phosphatase (39-117) U/L Total Protein (6.5-8.0) g/dL Albumin (3.5-5.0) g/dL Urine Opiates Screen Not Detected (Not Detect) Urine Fentanyl Screen Not Detected (Not Detect) Ur Barbiturates Screen Not Detected (Not Detect) Ur Phencyclidine Scrn Not Detected (Not Detect) Ur Amphetamines Screen Not Detected (Not Detect) U Benzodiazepines Scrn Not Detected (Not Detect) Urine Cocaine Screen Not Detected (Not Detect) U Marijuana (THC) Screen POSITIVE H (Not Detect) Ethyl Alcohol mg/dL COVID-19 (TESS) Negative (Negative) COVID-19 Clin Com See Note Discharge Plan Discharge Clinical Impression: Bipolar disorder Patient Disposition: Still a Patient Instructions: Bipolar Disorder (ED) Print Language: Syrian
[2021-07-11] MEDS: LORazepam 1 MG TABLET 2 MG PO (16:04)
[2021-07-11 16:17] LABS: MANUAL DIFF FLAG NO
[2021-07-11 16:18] LABS: Basophils Absolute Auto 0.1 X10*3/uL (0.0-0.2); Basophils Percent Auto 0.7 % (0-2); Eosinophils Absolute Auto 0.1 X10*3/uL (0.0-0.4); Eosinophils Percent Auto 0.7 % (0-4); Hematocrit 49.2 % (42.0-52.0); Hemoglobin 16.5 g/dl (14.0-18.0); Imm Gran Abs Auto 0.03 X10*3/uL (0.00-0.03); Imm Gran Pct Auto 0.4 % (0.0-0.4); Lymphocytes Absolute Auto 1.7 X10*3/uL (1.2-4.9); Lymphocytes Percent Auto 25.2 % (20-40); Mean Corpuscular HGB Conc 33.5 g/dl (31.0-36.0); Mean Corpuscular Volume 92.3 fL (80.0-98.0); Mean Platelet Volume 10.5 fL (9.4-12.4); Monocytes Absolute Auto 0.8 X10*3/uL (0.1-1.2); Monocytes Percent Auto 11.8 % (2-11); Neutrophils Absolute Auto 4.2 x10*3/uL (2.0-8.3); Neutrophils Percent Auto 61.2 % (45-73); Platelet Count 245 X10*3/uL (160-400); Red Blood Count 5.33 X10*6/uL (4.60-5.80); Red Cell Distribution Width 13.6 % (11.0-16.0); White Blood Count 6.9 X10*3/uL (4.8-10.8)
[2021-07-11 16:34] LABS: Alanine Aminotransferase 24 U/L (0-40); Alkaline Phosphatase 71 U/L (39-117); Anion Gap 12 (12-20); Aspartate Amino Transferase 29 U/L (5-37); Bilirubin Total 0.3 mg/dL (0.0-1.0); Blood Urea Nitrogen 15 mg/dL (9-16); Calcium 9.8 mg/dL (8.4-10.2); Carbon Dioxide 29 mmol/L (22-29); Chloride 102 mmol/L (96-108); Creatinine Clr Calc Pharmacy 92.6; Estimated Glomerular Filt Rate > 60; Glucose Random 100 mg/dL (60-115); Potassium 4.2 mmol/L (3.3-5.1); Sodium 139 mmol/L (135-145)
[2021-07-11 16:35] LABS: COVID-19 Test Negative (Negative)
[2021-07-11 16:37] LABS: Ethanol < 10 mg/dL
[2021-07-11 16:40] LABS: Amphetamine Screen Urine Not Detected (Not Detect); Barbiturates, Urine Not Detected (Not Detect); Benzodiazepines Screen Urine Not Detected (Not Detect); Cannabinoid Screen Urine POSITIVE (Not Detect); Cocaine Screen Urine Not Detected (Not Detect); Fentanyl, urine Not Detected (Not Detect); Opiate Screen Urine Not Detected (Not Detect); Phencyclidine Screen Urine Not Detected (Not Detect)
[2021-07-12 01:29] VITALS: BP 141/96; PULSE 87; RESP 17; TEMP 36.4; O2SAT 98
[2021-07-12 04:00] VITALS: RESP 17
--- NOTE | 2021-07-12 06:17 | PC.NURSE ---
Patient slept through the night, no distress observed/reported, BHN assessed the patient unable to get hold the brother, disposition is WANG F/U in the morning, behavior appropriate, patient currently not on any medication, VSS, will continue to monitor.
[2021-07-12 07:36] VITALS: RESP 17
--- NOTE | 2021-07-12 08:10 | PC.NURSE ---
pt is sleeping resp even and unlabored.
--- NOTE | 2021-07-12 09:15 | PC.NURSE ---
pt is a/o x 3 no sob/khalida noted. pt amb (i) gait steady to bathroom. denies any si/hi.
--- NOTE | 2021-07-12 11:54 | PC.NURSE ---
bhn at bedside, pt aware of plan of care.
[2021-07-12 11:57] VITALS: BP 116/77; PULSE 78; TEMP 37.1; O2SAT 98
--- NOTE | 2021-07-12 13:54 | PC.NURSE ---
per n - psych consult/eval then discharge to outpatient urgent care(n).
== END 2021-07-12 14:56 | disposition home or self-care (01) ==
PROVIDERS: Physician Assistant Medical; Emergency Provider Emergency Medicine
DX: F31.10 Bipolar disorder, current episode manic without psychotic features, unspecified (principal); Z20.822 Contact with and (suspected) exposure to COVID-19; Z59.02 Unsheltered homelessness
CPT/HCPCS: 36415; 80053; 80307; 82077; 85025; 87635; 99284

== ENCOUNTER 2021-08-13 10:51 | Emergency (ER) | payer MEDICARE, MEDICAID, SELFPAY ==
[2021-08-13 11:09] VITALS: BP 134/82; PULSE 90; RESP 18; TEMP 36.9; O2SAT 98; BMI 17.9
--- NOTE | 2021-08-13 11:14 | ECG_ITS ---
Test Reason : weakness Blood Pressure : / mmHG Vent. Rate : 081 BPM Atrial Rate : 081 BPM P-R Int : 148 ms QRS Dur : 084 ms QT Int : 360 ms P-R-T Axes : 074 093 055 degrees QTc Int : 418 ms Normal sinus rhythm Rightward axis Borderline ECG No previous ECGs available Referred By: Generic ED Physician Electronically Signed By:Des Collins
[2021-08-13 11:26] LABS: Basophils Percent Auto 0.3 % (0-2); Eosinophils Percent Auto 0.4 % (0-4); Hematocrit 49.1 % (42.0-52.0); Hemoglobin 16.7 g/dl (14.0-18.0); Imm Gran Abs Auto 0.03 X10*3/uL (0.00-0.03); Imm Gran Pct Auto 0.4 % (0.0-0.4); Lymphocytes Absolute Auto 1.5 X10*3/uL (1.2-4.9); Lymphocytes Percent Auto 19.2 % (20-40); MANUAL DIFF FLAG NO; Mean Corpuscular Hemoglobin 31.4 pg (27.0-33.0); Mean Corpuscular Volume 92.3 fL (80.0-98.0); Mean Platelet Volume 11.2 fL (9.4-12.4); Monocytes Percent Auto 13.2 % (2-11); Neutrophils Absolute Auto 5.2 x10*3/uL (2.0-8.3); Neutrophils Percent Auto 66.5 % (45-73); Platelet Count 203 X10*3/uL (160-400); Red Blood Count 5.32 X10*6/uL (4.60-5.80); Red Cell Distribution Width 13.2 % (11.0-16.0); White Blood Count 7.9 X10*3/uL (4.8-10.8)
[2021-08-13 11:48] LABS: Anion Gap 16 (12-20); Blood Urea Nitrogen 16 mg/dL (9-16); Calcium 9.5 mg/dL (8.4-10.2); Carbon Dioxide 22 mmol/L (22-29); Chloride 105 mmol/L (96-108); Creatinine Clr Calc Pharmacy 67.7; Estimated Glomerular Filt Rate > 60; Glucose Random 114 mg/dL (60-115); Potassium 4.4 mmol/L (3.3-5.1); Sodium 139 mmol/L (135-145)
== END 2021-08-13 17:34 | disposition left against medical advice (07) ==
PROVIDERS: Emergency Provider Emergency Medicine; PCP Internal Medicine
DX: R41.3 Other amnesia (principal); R53.1 Weakness; R63.4 Abnormal weight loss
CPT/HCPCS: 36415; 80048; 85025; 93005; 99281; 99282; 99283

== ENCOUNTER 2021-11-08 10:40 | Outpatient (REF) | payer MEDICARE, MEDICAID, SELFPAY ==
[2021-11-08 11:11] LABS: MANUAL DIFF FLAG NO
[2021-11-08 11:43] LABS: Basophils Percent Auto 0.8 % (0-2); Eosinophils Absolute Auto 0.1 X10*3/uL (0.0-0.4); Eosinophils Percent Auto 2.7 % (0-4); Hematocrit 47.7 % (42.0-52.0); Imm Gran Abs Auto 0.02 X10*3/uL (0.00-0.03); Imm Gran Pct Auto 0.4 % (0.0-0.4); Lymphocytes Absolute Auto 1.3 X10*3/uL (1.2-4.9); Lymphocytes Percent Auto 25.3 % (20-40); Mean Corpuscular HGB Conc 33.5 g/dl (31.0-36.0); Mean Corpuscular Volume 95.4 fL (80.0-98.0); Monocytes Absolute Auto 0.7 X10*3/uL (0.1-1.2); Monocytes Percent Auto 13.2 % (2-11); Neutrophils Percent Auto 57.6 % (45-73); Platelet Count 232 X10*3/uL (160-400); Red Cell Distribution Width 13.7 % (11.0-16.0); White Blood Count 5.2 X10*3/uL (4.8-10.8)
[2021-11-08 12:12] LABS: Alanine Aminotransferase 17 U/L (0-40); Albumin Level 3.9 g/dL (3.5-5.0); Alkaline Phosphatase 70 U/L (39-117); Anion Gap 14 (12-20); Aspartate Amino Transferase 21 U/L (5-37); Bilirubin Total 0.2 mg/dL (0.0-1.0); Blood Urea Nitrogen 11 mg/dL (9-16); Calcium 9.1 mg/dL (8.4-10.2); Carbon Dioxide 30 mmol/L (22-29); Chloride 100 mmol/L (96-108); Estimated Glomerular Filt Rate > 60; Glucose Random 94 mg/dL (60-115); Potassium 4.9 mmol/L (3.3-5.1); Sodium 139 mmol/L (135-145)
[2021-11-08 12:34] LABS: Thyroid Stimulating Hormone 1.02 uIU/mL (0.32-4.0)
[2021-11-08 12:43] LABS: Erythrocyte Sedimentation Rate 2 MM/HR (0-15)
== END 2021-11-08 10:41 | disposition home or self-care (01) ==
LOC: HO.LAB 10:40
PROVIDERS: PCP Internal Medicine; Visit Provider Internal Medicine
DX: R63.4 Abnormal weight loss (principal)
CPT/HCPCS: 36415; 80053; 84443; 85025; 85652

== ENCOUNTER 2023-09-22 15:46 | Outpatient (REF) | payer MEDICARE, MEDICAID, SELFPAY ==
[2023-09-22 17:55] LABS: MANUAL DIFF FLAG NO
[2023-09-22 18:03] LABS: Basophils Percent Auto 0.4 % (0-2); Eosinophils Absolute Auto 0.1 X10*3/uL (0.0-0.4); Hematocrit 49.1 % (42.0-52.0); Hemoglobin 16.8 g/dl (14.0-18.0); Imm Gran Abs Auto 0.01 X10*3/uL (0.00-0.03); Imm Gran Pct Auto 0.1 % (0.0-0.4); Lymphocytes Absolute Auto 1.4 X10*3/uL (1.2-4.9); Lymphocytes Percent Auto 19.6 % (20-40); Mean Corpuscular HGB Conc 34.2 g/dl (31.0-36.0); Mean Corpuscular Volume 96.5 fL (80.0-98.0); Mean Platelet Volume 11.4 fL (9.4-12.4); Monocytes Absolute Auto 0.9 X10*3/uL (0.1-1.2); Monocytes Percent Auto 12.2 % (2-11); Neutrophils Absolute Auto 4.6 x10*3/uL (2.0-8.3); Neutrophils Percent Auto 66.7 % (45-73); Platelet Count 247 X10*3/uL (160-400); Red Blood Count 5.09 X10*6/uL (4.60-5.80); Red Cell Distribution Width 13.6 % (11.0-16.0)
[2023-09-22 18:23] LABS: Alanine Aminotransferase 19 U/L (0-40); Albumin Level 4.1 g/dL (3.5-5.0); Alkaline Phosphatase 76 U/L (39-117); Anion Gap 15 (12-20); Aspartate Amino Transferase 24 U/L (5-37); Bilirubin Total 0.4 mg/dL (0.0-1.0); Blood Urea Nitrogen 13 mg/dL (9-16); Calcium 9.7 mg/dL (8.4-10.2); Carbon Dioxide 25 mmol/L (22-29); Chloride 106 mmol/L (96-108); Estimated Glomerular Filt Rate > 60; Glucose Random 141 mg/dL (60-115); Potassium 3.8 mmol/L (3.3-5.1); Sodium 142 mmol/L (135-145); Total Protein 7.5 g/dL (6.5-8.0)
[2023-09-22 18:39] LABS: Free T4 (Free Thyroxine) 0.89 ng/dL (0.71-1.85); Thyroid Stimulating Hormone 1.23 uIU/mL (0.32-4.0)
[2023-09-22 19:04] LABS: Folate 13.8 ng/mL (> or = 4.0); Prostate Specific Antigen 0.89 ng/mL (<0.05-4.0); Vitamin B12 800 pg/mL (200-900)
== END 2023-09-22 15:47 | disposition home or self-care (01) ==
LOC: HO.MANLDS 15:46
PROVIDERS: Visit Provider Internal Medicine
DX: E78.00 Pure hypercholesterolemia, unspecified (principal); R41.3 Other amnesia; Z12.5 Encounter for screening for malignant neoplasm of prostate
CPT/HCPCS: 36415; 80053; 82607; 82746; 84153; 84439; 84443; 85025

== ENCOUNTER 2024-03-29 15:22 | Emergency (ER) | payer MEDICARE, MEDICAID, SELFPAY ==
--- NOTE | ~2024-03-29 | XR_ITS ---
CLINICAL HISTORY: fracture? Three views of the right foot. Findings: No acute fracture or dislocation is seen. There is a probable old fracture of the 3rd metatarsal. There is minimal hallux valgus. A small posterior calcaneal spur is present. Impression: No acute fracture is identified. This document has been electronically signed by: Kaleb Duarte MD on 03/29/2024 17:39:39
--- NOTE | ~2024-03-29 | XR_ITS ---
CLINICAL HISTORY: ankle pain Three views of the right ankle. Comparison 05/01/2021. Findings: No acute fractures are seen. There is no dislocation. Mild posterior calcaneal spurring is present. Impression: No acute bony abnormality is identified. This document has been electronically signed by: Kaleb Duarte MD on 03/29/2024 17:38:50
[2024-03-29 16:07] VITALS: BP 163/75; PULSE 93; RESP 20; TEMP 36.9; O2SAT 97; BMI 21.5
--- NOTE | 2024-03-29 16:11 | ED.GENADULT ---
HPI - General Adult General Chief complaint: Extremity Problem Stated complaint: R ankle pain Time Seen by Provider: 03/29/24 19:03 Source: patient Mode of arrival: ambulatory Limitations: no limitations History of Present Illness ED Provider: Dr. Eli Kilpatrick HPI narrative: patient comes to the emergency room complaining of chronic right ankle pain. Patient states that he did not hurt his ankle. Patient states rehab but I can not in that his right ankle has been hurting since he started riding bicycle. Patient states that he rides between 150 and 200 miles per week because for medical reasons his license got suspended. Patient states that in the past he has had severe pain in the dorsum of the foot with redness but it is not the case today. Patient denies being diagnosed with gout Related Data Previous Rx's ?Medication ?Instructions ?Recorded naproxen 250 mg tablet 250 mg PO BID PRN pain #30 tabs 03/29/24 Allergies Allergy/AdvReac Type Severity Reaction Status Date / Time No Known Allergies Allergy Verified 03/29/24 16:09 [No Known Allergies*] Review of Systems Review of Systems: Constitutional : No Weight loss, No Fever, No Chills, No Night Sweats, No Fatigue, No Malaise ENT/Mouth : No Hearing loss, No Ear Pain, No Nasal Congestion, No Sinus Pain, No Hoarseness, No sore throat, No Rhinorrhea, No Swallowing Difficulty Eyes: No Eye Pain, No Swelling, No Redness, No Foreign Body, No Discharge, No Vision Changes Cardiovascular : No Chest Pain, No SOB, No Dyspnea on Exertion, No Orthopnea, No Edema, No Palpitations Respiratory : No Cough, No Sputum, No Wheezing, No Smoke Exposure, No Dyspnea Gastrointestinal : No Nausea, No Vomiting, No Diarrhea, No Constipation, No abdominal Pain, No Hematochezia, No Melena Genitourinary : no irregular bleeding, No Dysuria, No Urinary Frequency, No Hematuria, No Urinary Incontinence, No Urgency, No Flank Pain, No Urinary Flow Changes, No Hesitancy Musculoskeletal : patient complaining of chronic right ankle pain, no myalgias, No Joint Swelling Skin : No Skin Lesions, No rash Neuro : No Weakness, No Numbness, No Paresthesias, No Loss of Consciousness, No Dizziness, No Headache Psych : No Anxiety/Panic, No Depression, No SI/HI/AH/VH, No Social Issues, Heme/Lymph: No Bruising, No Bleeding,No Lymphadenopathy Endocrine : No Polyuria, No Polydipsia, No Temperature Intolerance [facility] Past Medical History Medical History History of scarlet fever Hernia of abdominal wall Christa Depression Social History Social History Advance Directives: No Advance Directives Information Provided: No Physical Exam ED Vital Signs: Vital Signs - 24 hr 03/29/24 16:07 03/29/24 19:17 03/29/24 19:42 Temperature 98.5 F 98.2 F 98.2 F Pulse Rate 93 82 82 Respiratory Rate 20 20 20 Blood Pressure 163/75 H 155/93 H 155/93 H Pulse Oximetry 97 95 95 Oxygen Delivery Method Room Air Room Air Room Air BMI result Body Mass Index 21.5 Const Other: Appearance: Alert. Oriented X3. No acute distress. Eyes: Pupils equal, round and reactive to light. ENT: Pharynx normal. Neck: Normal inspection. Neck supple. No lymph nodes noted. No crepitus CVS: Normal heart rate and rhythm. Pulses normal. Normal S1 and S2 Respiratory: No respiratory distress. Breath sounds normal. No Wheezing. No rales Abdomen: Soft and nontender. No rigidity. No distention. Skin: Skin warm and dry. Normal skin color. Normal skin turgor. Extremities: No lower extremity edema. No Lacerations. No Rash. Right ankle within normal limits, no swelling, no erythema, normal range of motion. Patient able to bear weight and walk Neuro: Oriented X 3. No motor deficit. No sensory deficit. Moving all extremities. No slurred speech. CN 2 through 12 grossly intact Psych: calm, cooperative, normal affect Course Course Course Narrative: RME: 69-year-old male presents to ED for right ankle pain. Stay right and bite for many miles. Patient denies any leg swelling, calf pain, leg cramping. Physical exam positive for right lateral malleolus tenderness without any tenderness or ecchymosis or deformity. Vascular motor neuro exam intact. X-ray ordered. Medications Administered Discontinued Medications Generic Name Dose Route Start Last Admin Trade Name Freq PRN Reason Stop Dose Admin Naproxen 500 mg 03/29/24 19:29 03/29/24 19:41 Naproxen 500 Mg Tablet PO 03/29/24 19:30 500 mg ONCE ONE Administration Medical Decision Making Medical Decision Making MDM Narrative: my interpretation of x-ray, no acute fractures I discussed the x-ray with the patient. Most likely, patient has arthritis, patient states that he noted that the pain has been getting worse since he started riding bicycles so much. Patient was given p.o. naproxen. Patient mentioned that sometimes his foot gets very red and swollen only on the dorsum. I discussed with the patient to follow-up with his PCP, as he may have undiagnosed gout but not today. Independent Interpretation I performed an independent interpretation of an: Plain X-Ray Radiology Impression Discussion of test interpretation with radiology: I have reviewed the radiologist's reading. Radiologist Impression: No acute fracture or dislocation is seen. There is a probable old fracture of the 3rd metatarsal. There is minimal hallux valgus. A small posterior calcaneal spur is present. No acute fractures are seen. There is no dislocation. Mild posterior calcaneal spurring is present. Discharge Plan Discharge Clinical Impression: Arthralgia Patient Disposition: Home, Self-Care Instructions: Arthralgia (ED) Additional Instructions: Please follow-up with your primary care physician tomorrow. If you have any worsening or new symptoms, please return to the emergency room or call 911 Prescriptions: New naproxen 250 mg tablet 250 mg PO BID PRN (Reason: pain) Qty: 30 0RF Interventions: ED Discharge Assessment Last Done: 03/29/24 19:42 Discharge Date/Time: 03/29/24 19:43 Print Language: Divehi
[2024-03-29 19:17] VITALS: BP 155/93; PULSE 82; RESP 20; TEMP 36.8; O2SAT 95
[2024-03-29] MEDS: NaPROXEN 500 MG TABLET PO (19:41)
[2024-03-29 19:42] VITALS: BP 155/93; PULSE 82; RESP 20; TEMP 36.8; O2SAT 95
== END 2024-03-29 19:43 | disposition home or self-care (01) ==
PROVIDERS: Emergency Provider Emergency Medicine; PCP Internal Medicine
DX: M25.571 Pain in right ankle and joints of right foot (principal)
CPT/HCPCS: 73600; 73620; 99283; 99284

== ENCOUNTER → 2024-03-29 16:10 | Outpatient (BNV) | payer MEDICARE, MEDICAID, SELFPAY | PROVIDERS: PCP Internal Medicine; Visit Provider Radiology Diagnostic Radiology | DX: M25.571 Pain in right ankle and joints of right foot (principal) | CPT/HCPCS: 73600; 73620 ==

== ENCOUNTER 2024-04-02 11:24 | Emergency (ER) | payer MEDICARE, MEDICAID, SELFPAY ==
--- NOTE | 2024-04-02 11:31 | ED_ITS ---
HPI - General Adult General Chief complaint: Psychiatric Symptoms Stated complaint: CRISIS Time Seen by Provider: 04/02/24 11:31 History of Present Illness ED Provider: Julian DALE narrative: The patient is a 69-year-old male who arrives at the emergency room today by ambulance from his primary care doctor's office in [place]. The patient is homeless. He says that he has a history of psychiatric illness but can not specify what psychiatric illness he has. He says he has been psychiatrically hospitalized in the past but can not tell me what treatment he received. He says he was last psychiatrically hospitalized at this hospital about 10 years ago. He says he has done well since then. He is homeless and I think he has been homeless for some time. For about 3 weeks he has been staying at a [facility] residential in [place]. He says that things are quite chaotic at the residential and he is not happy there. He feels that he is I had becoming more confused and disorganized living at the residential. Today he felt that he ought to come to the emergency room with a goal of seeking a voluntary psychiatric hospitalization. The patient says that he is so disorganized in his thinking that he came here 4 days ago on March 29 by taxi with a goal hospitalized. However once he got here he mentioned some ankle pain and ended up being evaluated for his ankle pain. He says this distracted him from his psychiatric concerns and he never mentioned his psychiatric concerns when he was here the other day. Old records indicate that he has a history of manic depression/bipolar disorder but the patient was not able to articulate these problems. The patient is not currently on any medications. He says he stopped smoking about 20 years ago. He says that he has not had any alcohol for a few months. He denies any street drug use. Related Data Home Medications ?Medication ?Instructions ?Recorded ?Confirmed No Known Home Meds 04/02/24 04/02/24 Allergies Allergy/AdvReac Type Severity Reaction Status Date / Time No Known Allergies Allergy Verified 04/02/24 11:55 [No Known Allergies*] Review of Systems 2 Review of Systems: Yes all other systems are reviewed and are negative PMFSH Past Medical History Medical History History of scarlet fever Hernia of abdominal wall Christa Depression Social History Social History Alcohol intake: current Smoked in Last 30 Days: No Use of substances other than those prescribed or required for medical reasons: No Advance Directives: No Advance Directives Information Provided: Yes Physical Exam ED Vital Signs: Vital Signs - 24 hr 04/02/24 11:54 04/02/24 11:56 Temperature 98.2 F Pulse Rate 82 Respiratory Rate 16 18 Blood Pressure 138/72 Pulse Oximetry 98 Oxygen Delivery Method Room Air BMI result Body Mass Index 21.5 Const Other: The patient is awake and alert, pleasant cooperative. He is in no apparent distress. HENMT Other: The face is symmetrical. ?Mucous membranes moist. Eyes Other: Pupils are round equal, conjunctivae are clear, extraocular movements intact Neck Neck: Yes full ROM Resp Effort & Inspection: normal respiratory effort Auscultation: clear to auscultation bilaterally GI Other: Abdomen is soft and nontender Skin Other: Skin is dry and unremarkable Neuro Other: The patient is awake, alert, oriented, appropriate. Cranial nerves 2 through 12 are intact.. He moves his extremities normally and appropriately with normal coordination and sensation. He has a normal gait Extrem Other: No peripheral edema Psych Other: The patient is awake and alert. The makes good eye contact. He is mildly unkempt. He seems somewhat disorganized but without jose thought disorder. Medical Decision Making Medical Decision Making MDM Narrative: The patient is here on a voluntary basis because of concern about his mental health. He is hoping to be hospitalized to ?straighten out my mind.? He does not seem to have any acute medical concerns. The patient's medical testing in the emergency room today is unremarkable. The patient is medically clear for evaluation and disposition by the care team. The patient will be placed in physician observation. Lab Data 04/02/24 12:17 04/02/24 12:17 Labs: Lab Results 04/02/24 04/02/24 Range/Units 12:16 12:17 WBC 6.5 (4.8-10.8) X10*3/uL RBC 4.45 L (4.60-5.80) X10*6/uL Hgb 14.6 (14.0-18.0) g/dl Hct 42.1 (42.0-52.0) % MCV 94.6 (80.0-98.0) fL MCH 32.8 (27.0-33.0) pg MCHC 34.7 (31.0-36.0) g/dl RDW 12.7 (11.0-16.0) % Plt Count 231 (160-400) X10*3/uL MPV 10.4 (9.4-12.4) fL Immature Gran % (Auto) 0.3 (0.0-0.4) % Neut % (Auto) 74.7 H (45-73) % Lymph % (Auto) 13.4 L (20-40) % [place] % (Auto) 10.6 (2-11) % Eos % (Auto) 0.5 (0-4) % Baso % (Auto) 0.5 (0-2) % Lymph # (Auto) 0.9 L (1.2-4.9) X10*3/uL [place] # (Auto) 0.7 (0.1-1.2) X10*3/uL Eos # (Auto) 0.0 (0.0-0.4) X10*3/uL Baso # (Auto) 0.0 (0.0-0.2) X10*3/uL Abs Immat Gran (auto) 0.02 (0.00-0.03) X10*3/uL Absolute Neuts (auto) 4.8 (2.0-8.3) x10*3/uL Absolute Nucleated RBC 0.000 (0.0-0.012) X10*3/uL Nucleated RBC % (auto) 0.0 (0.0-0.2) /100WBC Sodium 142 (135-145) mmol/L Potassium 3.8 (3.3-5.1) mmol/L Chloride 110 H (96-108) mmol/L Carbon Dioxide 29 (22-29) mmol/L Anion Gap 7 L (12-20) BUN 17 H (9-16) mg/dL Creatinine 0.84 (0.5-1.4) mg/dL Estim Creat Clear Calc 79.8 Estimated GFR > 60 Random Glucose 112 (60-115) mg/dL Calcium 8.4 D (8.4-10.2) mg/dL Magnesium 2.0 (1.6-2.6) mg/dL Total Bilirubin 0.3 (0.0-1.0) mg/dL Direct Bilirubin 0.1 (0.0-0.5) mg/dL AST 31 (5-37) U/L ALT 27 (0-40) U/L Alkaline Phosphatase 107 (39-117) U/L Total Protein 6.7 (6.5-8.0) g/dL Albumin 3.6 (3.5-5.0) g/dL Urine Color Yellow Urine Appearance Clear Urine pH 5.5 (5.0-9.0) Ur Specific [place] 1.025 (1.005-1.025) Urine Protein Negative (Neg-Trace) mg/dL Urine Glucose (UA) Negative (Negative) mg/dL Urine Ketones Negative (Negative) mg/dL Urine Blood Negative (Negative) Urine Nitrite Negative (Negative) Ur Leukocyte Esterase Negative (Negative) Salicylates < 5.0 L (15-30) mg/dL Urine Opiates Screen Not Detected (Not Detect) Ur Buprenorphine Scrn Not Detected (Not Detect) ng/mL Ur Oxycodone Screen Not Detected (Not Detect) ng/mL Urine Methadone Screen Not Detected (Not Detect) ng/mL Urine Fentanyl Screen Not Detected (Not Detect) Acetaminophen < 3 (<30) mcg/mL Ur Barbiturates Screen Not Detected (Not Detect) Ur Phencyclidine Scrn Not Detected (Not Detect) Ur Amphetamines Screen Not Detected (Not Detect) U Benzodiazepines Scrn Not Detected (Not Detect) Urine Cocaine Screen Not Detected (Not Detect) U Marijuana (THC) Screen POSITIVE H (Not Detect) Ethyl Alcohol < 10 mg/dL Influenza Type A (PCR) NEGATIVE (Negative) Influenza Type B (PCR) NEGATIVE (Negative) RSV RNA Qual (PCR) NEGATIVE (Negative) SARS-CoV-2 RNA (RT-PCR) NEGATIVE (Negative) Independent Interpretation I performed an independent interpretation of an: EKG Interpretation: EKG at 12:30 shows normal sinus rhythm at 60 beats per minute. It is a normal EKG. No change from previous. Discharge Plan Discharge Clinical Impression: Bipolar disorder Patient Disposition: Still a Patient Prescriptions: No Action No Known Home Meds Interventions: [place]-Suicide Risk Severity Scale Last Done: 04/02/24 11:56 Print Language: Hungarian
--- NOTE | 2024-04-02 11:36 | ECG_ITS ---
Test Reason : CP Blood Pressure : */* mmHG Vent. Rate : 60 BPM Atrial Rate : 60 BPM P-R Int : 134 ms QRS Dur : 78 ms QT Int : 398 ms P-R-T Axes : 103 70 64 degrees QTcB Int : 398 ms Normal sinus rhythm Normal ECG When compared with ECG of 13-Aug-2021 11:12, No significant change was found Referred By: Abraham Jordan Electronically Signed By: FARIDEH CHONG
[2024-04-02 11:40] VITALS: BP 136/85; PULSE 80; O2SAT 97
[2024-04-02 11:54] VITALS: BP 138/72; PULSE 82; RESP 16; TEMP 36.8; O2SAT 98; BMI 21.5
[2024-04-02 11:56] VITALS: RESP 18
[2024-04-02 12:26] LABS: MANUAL DIFF FLAG NO
[2024-04-02 12:27] LABS: Basophils Percent Auto 0.5 % (0-2); Eosinophils Percent Auto 0.5 % (0-4); Hematocrit 42.1 % (42.0-52.0); Hemoglobin 14.6 g/dl (14.0-18.0); Imm Gran Abs Auto 0.02 X10*3/uL (0.00-0.03); Imm Gran Pct Auto 0.3 % (0.0-0.4); Lymphocytes Absolute Auto 0.9 X10*3/uL (1.2-4.9); Lymphocytes Percent Auto 13.4 % (20-40); Mean Corpuscular HGB Conc 34.7 g/dl (31.0-36.0); Mean Corpuscular Hemoglobin 32.8 pg (27.0-33.0); Mean Corpuscular Volume 94.6 fL (80.0-98.0); Mean Platelet Volume 10.4 fL (9.4-12.4); Monocytes Absolute Auto 0.7 X10*3/uL (0.1-1.2); Monocytes Percent Auto 10.6 % (2-11); Neutrophils Absolute Auto 4.8 x10*3/uL (2.0-8.3); Neutrophils Percent Auto 74.7 % (45-73); Platelet Count 231 X10*3/uL (160-400); Red Blood Count 4.45 X10*6/uL (4.60-5.80); Red Cell Distribution Width 12.7 % (11.0-16.0); White Blood Count 6.5 X10*3/uL (4.8-10.8)
[2024-04-02 12:30] LABS: Appearance Urine Clear; Color Urine Yellow; Glucose Urine UA Negative (Negative); Leukocyte Esterase Urine Negative (Negative); Nitrite Urine Negative (Negative); PH 5.5 (5.0-9.0); Specific Gravity - Urine 1.025 (1.005-1.025); Urine Blood Negative (Negative); Urine Ketones Negative (Negative); Urine Protein Negative (Neg-Trace)
[2024-04-02 12:38] LABS: Amphetamine Screen Urine Not Detected (Not Detect); Barbiturates, Urine Not Detected (Not Detect); Benzodiazepines Screen Urine Not Detected (Not Detect); Buprenorphine Scr Not Detected (Not Detect); Cannabinoid Screen Urine POSITIVE (Not Detect); Cocaine Screen Urine Not Detected (Not Detect); Fentanyl, urine Not Detected (Not Detect); Methadone Screen, Urine Not Detected (Not Detect); Opiate Screen Urine Not Detected (Not Detect); Oxycodone Screen Urine Not Detected (Not Detect); Phencyclidine Screen Urine Not Detected (Not Detect)
[2024-04-02 12:41] LABS: Ethanol < 10 mg/dL
[2024-04-02 12:44] LABS: Alanine Aminotransferase 27 U/L (0-40); Albumin Level 3.6 g/dL (3.5-5.0); Alkaline Phosphatase 107 U/L (39-117); Anion Gap 7 (12-20); Aspartate Amino Transferase 31 U/L (5-37); Bilirubin Direct 0.1 mg/dL (0.0-0.5); Bilirubin Total 0.3 mg/dL (0.0-1.0); Blood Urea Nitrogen 17 mg/dL (9-16); Calcium 8.4 mg/dL (8.4-10.2); Carbon Dioxide 29 mmol/L (22-29); Chloride 110 mmol/L (96-108); Creatinine Clr Calc Pharmacy 79.8; Estimated Glomerular Filt Rate > 60; Glucose Random 112 mg/dL (60-115); Potassium 3.8 mmol/L (3.3-5.1); Sodium 142 mmol/L (135-145); Total Protein 6.7 g/dL (6.5-8.0)
[2024-04-02 12:47] LABS: Acetaminophen LAB < 3 mcg/mL (<30); Salicylate < 5.0 mg/dL (15-30)
[2024-04-02 13:19] LABS: Influenza A PCR NEGATIVE (Negative); Influenza B PCR NEGATIVE (Negative); Resp Syncy Virus RNA Qual PCR NEGATIVE (Negative); SARS COV2 PCR INHOUSE NEGATIVE (Negative)
--- NOTE | 2024-04-02 19:13 | MHC.CARE ---
Pt assessed by the CARE Team and is an ACCS bedsearch. Attempted to call [facility] but number was not in service at this time. [facility] provided their fax as well as [facility]'s fax [facility] Referrals were faxed over to both locations and were received. CARE Team will continue to follow-up on the status of these referrals.
[2024-04-03 03:01] VITALS: BP 155/83; PULSE 58; RESP 16; TEMP 36.4; O2SAT 97
[2024-04-03 07:05] VITALS: PULSE 86; RESP 16; O2SAT 98
--- NOTE | 2024-04-03 07:05 | PC.NURSE ---
Assumed care of patient at 0645, patient appears to be sleeping, respirations even and unlabored, no apparent distress noted. Continue plan of care for respite bedsearch
[2024-04-03 08:12] VITALS: BP 151/88; PULSE 77; RESP 16; TEMP 36.6; O2SAT 98
--- NOTE | 2024-04-03 09:48 | MHC.CARE ---
Fax sent to [facility] in [place] for pt as they have available beds.
--- NOTE | 2024-04-03 12:17 | MHC.CARE ---
Contacted [facility] @[phone], referral is activated and currently in review. Spoke with Darvin
[2024-04-03 15:43] VITALS: BP 136/84; PULSE 91; RESP 16; TEMP 36.8; O2SAT 99
== END 2024-04-03 15:55 | disposition home or self-care (01) ==
PROVIDERS: Emergency Provider Emergency Medicine; PCP Internal Medicine
DX: F31.9 Bipolar disorder, unspecified (principal); R07.89 Other chest pain; Z59.00 Homelessness unspecified; Z51.81 Encounter for therapeutic drug level monitoring; Z79.899 Other long term (current) drug therapy; Z03.818 Encounter for observation for suspected exposure to other biological agents ruled out
CPT/HCPCS: 0241U; 36415; 80048; 80076; 80143; 80179; 80307; 81003; 83735; 85025; 93005; 99285; S9485

== ENCOUNTER → 2024-04-02 11:36 | Outpatient (BNV) | payer MEDICARE, MEDICAID, SELFPAY | PROVIDERS: Emergency Provider Emergency Medicine; PCP Internal Medicine; Visit Provider Internal Medicine | DX: R07.9 Chest pain, unspecified (principal) | CPT/HCPCS: 93010 ==

== ENCOUNTER 2024-05-28 11:05 | Outpatient (REF) | payer MEDICARE, MEDICAID, SELFPAY ==
--- OUTSIDE RECORDS SUMMARY | 2024-05-28 12:51 | XMS_ITS | Clinical Summary ---
Author Organization [facility] Address [address] [place] [address] Care Team Providers Care Academic Affairs Coordinator Name Role Phone PcpWindy Unassigned Primary Care Provider Karen Smith Unavailable Unavailable Medications cyclobenzaprine (Flexeril) 5 MG tablet Take 5 mg by mouth if needed in the morning, at noon, and at bedtime. 03/19/2022 Active Social History Tobacco Use Types Packs/Day Years Used Date Smoking Tobacco: Never Assessed Alcohol Answer Date Recorded How often do you have a drink containing alcohol ? 4 03/03/2023 How many drinks containing a lcohol do you have on a typical day when you are drinking? 1 03/03/2023 How often do you have six or more drinks on one occasion? 0 03/03/2023 Housing Stability Answer Date Recorded What is your housing situation today? I do not have housing (Staying with others, in a hotel, in a intermediate, living outside on the street, on a beach, in a car, or in a park 02/26/[address] you li ve. Do you have problems with any of the following? Not on file 02/26/2024 Food Insecurity Answer Date Recorded Within the past 12 months, y ou worried that your food would run out before you got money to buy more: Never True 02/26/2024 Within the past 12 months,th e food you bought just didn't last and you didn't have enough money to get more: Never True 07/2023 Transportation Answer Date Recorded In the past 12 months, has l ack of transportation kept you from medical appts, meetings, work or from getting things needed for daily living? I am not sure 02/26/2024 Intimate Partner Violence Answer Date R ecorded Within the last year, have y ou been afraid of your partner or ex-partner? 2 03/03/2023 Within the last year, have y ou been humiliated or emotionally abused in other ways by your partner or ex-partner? 2 Within the last year, have y ou been kicked, hit, slapped, or otherwise physically hurt by your partner or ex-partner? 2 03/03/2023 Within the last year, have y ou been raped or forced to have any kind of sexual activity by your partner or ex-partner? 2 03/03/2023 Utilities Answer Date Recorded In the past 12 months, has t he [employer], [employer], [employer] or water [employer] threatened to shut off services in your home? I am not sure 02/26/2024 Sex and Gender Information Value Date Recorded Sex Assigned at Male 07/22/2022 1:25 PM EDT Legal Sex Male 1:24 PM EDT Gender Identity Male 07/22/2022 1:25 PM EDT Sexual Orientation Straight 07/22/2022 1: 25 PM EDT Plan of Treatment Health Maintenance Due Date Last Done Comments CT Colonography 1955 Colonoscopy 1955 Colorectal Cancer Screening 1955 Depression Screening 1955 FIT DNA/Cologuard 1955 FIT 1955 FOBT 1955 Lipid Panel 1955 SDOH Screening 1955 Sigmoidoscopy 1955 Alcohol/Substance Use Screening 1967 Tobacco Screening 1967 Hepatitis C Screening 1973 Pneumococcal Vaccine: 50+ Years (1 of 1 - PCV) 2005 COVID-19 Vaccine ( - 2023-2 5 season) 2023 Influenza Vaccine (#1) 2023 DTaP/Tdap/Td Vaccines (2 - T d or Tdap) 08/14/2028 08/14/2018 RSV Patients and Patients Aged 60 years or older (1 - 1-dose 75+ series) 2030 Zoster Vaccines Completed 09/24/2019, 03/23/2019 HIB Vaccines Aged Out No longer eligi ble based on patient's age to complete this topic HPV Vaccines Aged Out No longer eligi ble based on patient's age to complete this topic Hepatitis A Vaccines Aged Out No long er eligible based on patient's age to complete this topic Hepatitis B Vaccines Aged Out No long er eligible based on patient's age to complete this topic IPV Vaccines Aged Out No longer eligi ble based on patient's age to complete this topic Meningococcal Vaccine Aged Out No aubree ashok eligible based on patient's age to complete this topic RSV under 20 months Aged Out No longe r eligible based on patient's age to complete this topic Rotavirus Vaccines Aged Out No longer eligible based on patient's age to complete this topic Care Teams Academic Affairs Coordinator Relationship Specialty Start Date End Date Windy Jones Unassigned PCP - General Family Medicine 07/22/22 Karen Almanza Community Health Worker 03/27/23
[2024-05-28 13:36] LABS: MANUAL DIFF FLAG NO
[2024-05-28 13:40] LABS: Basophils Percent Auto 0.4 % (0-2); Eosinophils Percent Auto 0.1 % (0-4); Hematocrit 46.5 % (42.0-52.0); Hemoglobin 15.5 g/dl (14.0-18.0); Imm Gran Abs Auto 0.01 X10*3/uL (0.00-0.03); Imm Gran Pct Auto 0.1 % (0.0-0.4); Lymphocytes Absolute Auto 1.2 X10*3/uL (1.2-4.9); Lymphocytes Percent Auto 15.1 % (20-40); Mean Corpuscular HGB Conc 33.3 g/dl (31.0-36.0); Mean Corpuscular Hemoglobin 31.3 pg (27.0-33.0); Mean Corpuscular Volume 93.9 fL (80.0-98.0); Mean Platelet Volume 11.1 fL (9.4-12.4); Monocytes Absolute Auto 0.8 X10*3/uL (0.1-1.2); Monocytes Percent Auto 9.6 % (2-11); Neutrophils Absolute Auto 6.1 x10*3/uL (2.0-8.3); Neutrophils Percent Auto 74.7 % (45-73); Platelet Count 254 X10*3/uL (160-400); Red Blood Count 4.95 X10*6/uL (4.60-5.80); Red Cell Distribution Width 13.1 % (11.0-16.0); White Blood Count 8.2 X10*3/uL (4.8-10.8)
[2024-05-28 14:14] LABS: Alanine Aminotransferase 17 U/L (0-40); Albumin Level 4.1 g/dL (3.5-5.0); Alkaline Phosphatase 89 U/L (39-117); Anion Gap 12 (12-20); Aspartate Amino Transferase 27 U/L (5-37); Bilirubin Total 0.7 mg/dL (0.0-1.0); Blood Urea Nitrogen 13 mg/dL (9-16); Calcium 9.1 mg/dL (8.4-10.2); Carbon Dioxide 26 mmol/L (22-29); Chloride 105 mmol/L (96-108); Estimated Glomerular Filt Rate > 60; Glucose Random 114 mg/dL (60-115); Sodium 139 mmol/L (135-145); Thyroid Stimulating Hormone 0.92 uIU/mL (0.32-4.0)
[2024-05-28 14:18] LABS: Vitamin B12 553 pg/mL (200-900)
== END 2024-05-28 11:06 | disposition home or self-care (01) ==
LOC: HO.MANLDS 11:05
PROVIDERS: Visit Provider Internal Medicine
DX: R41.82 Altered mental status, unspecified (principal)
CPT/HCPCS: 36415; 80053; 82607; 84443; 85025

== ENCOUNTER 2024-11-08 14:32 | Outpatient (REF) | payer MEDICARE, MEDICAID, SELFPAY ==
--- OUTSIDE RECORDS SUMMARY | 2024-11-08 15:16 | XMS_ITS | Encounter Summary ---
Author Organization [facility] Address [address] [place] [address] Phone Care Team Providers Care Hand Cutter Name Role Phone Stan Trinidad Primary Care Provider [phone] Encounter Details Date Type Department Care Team (Late st Contact Info) Description 07/09/2021 Procedure Pass [facility], Ct Scan - [facility] [address] [place] [address] Social History Tobacco Use Types Packs/Day Years Used Date Smoking Tobacco: Never Smokeless Tobacco: Never Alcohol Use Standard Drinks/Week Comments Yes 0 (1 standard drink = 0.6 oz pur e alcohol) 1-2 beer month Sex and Gender Information Value Date Recorded Sex Assigned at Male 10/26/2017 1:50 PM EDT Legal Sex Male 9:55 PM EDT Gender Identity Male 10/26/2017 1:50 PM EDT Sexual Orientation Straight 10/26/2017 1: 50 PM EDT documented as of this encounter Functional Status * Calculated C-SSRS Risk Score (Lifetime/Recent) Answer Date of Assessment Author No Risk Indicated 07/12/2021 11:02 PM EDT Ivelisse High RN * [place] Suicide Severity Rating Scale (Screener/Recent Self-Report) Question Answer Date of Assessment Author 1. Wish to be (Past 1 Month) No 022 11:02 PM EDT Ivelisse Elias, YESSENIA 2. Non-Specific Active Suici rebecca Thoughts (Past 1 Month) No 07/12/2021 11:02 PM EDT Elina Elias, RN 6. Suicidal Behavior (Lifetime) No 2 11:02 PM EDT Ivelisse Elias RN documented as of this encounter Plan of Treatment Not on file documented as of this encounter Visit Diagnoses Not on filedocumented in this encounter Care Teams Hand Cutter Relationship Specialty Start Date End Date Stan Trinidad DO [email or web address] PCP - General 01/07/17 documented as of this encounter Additional Source Comments The information contained in this document represents components of the legal health record. It is not the complete legal health record.[facility]
--- OUTSIDE RECORDS SUMMARY | 2024-11-08 15:16 | XMS_ITS | Clinical Summary ---
Author Organization [employer] Address [address] [place] [address] Care Team Providers Care Entry Specialist Name Role Phone PcpWindy Unassigned Primary Care Provider Karen Smith Unavailable Unavailable Medications cyclobenzaprine (Flexeril) 5 MG tablet Take 5 mg by mouth if needed in the morning, at noon, and at bedtime. 03/19/2022 Active Encounters Date Type Department Care Team Description 11/01/2024 [facility] [address] [place] [address] Akanksha Chahal W - EBT card replacement asistance from Last 3 Months Social History Tobacco Use Types Packs/Day Years [...] with others, in a hotel, in a assisted, living outside on the street, on a [...] the past 12 months, has t he [employer], [employer], oil or water company threatened to shut off services in your [...] 2023-2 5 season) 2023 Influenza Vaccine (#1) 2024 DTaP/Tdap/Td Vaccines (2 - T d or [...] patient's age to complete this topic Meningococcal B Vaccine Aged Out No l onger eligible based on patient's age to complete this topic Meningococcal Vaccine Aged Out No aubree ashok eligible based on patient's age to complete this topic RSV under 20 months Aged Out No longe r eligible based on patient's age to complete this topic Rotavirus Vaccines Aged Out No longer eligible based on patient's age to complete this topic Care Teams Entry Specialist Relationship Specialty Start Date End Date Windy Jones Unassigned PCP - General Family Medicine 07/22/22 Karen Almanza Community Health Worker 03/27/23
[2024-11-08 19:01] LABS: MANUAL DIFF FLAG NO
[2024-11-08 19:04] LABS: Hematocrit 44.8 % (42.0-52.0); Hemoglobin 15.2 g/dl (14.0-18.0); Imm Gran Abs Auto 0.02 X10*3/uL (0.00-0.03); Imm Gran Pct Auto 0.3 % (0.0-0.4); Lymphocytes Absolute Auto 1.4 X10*3/uL (1.2-4.9); Mean Corpuscular HGB Conc 33.9 g/dl (31.0-36.0); Mean Corpuscular Hemoglobin 31.7 pg (27.0-33.0); Mean Corpuscular Volume 93.3 fL (80.0-98.0); NRBC Abs Auto 0.000 X10*3/uL (0.0-0.012); NRBC Pct Auto 0.0 /100WBC (0.0-0.2); Platelet Count 241 X10*3/uL (160-400); Red Blood Count 4.80 X10*6/uL (4.60-5.80); White Blood Count 7.7 X10*3/uL (4.8-10.8)
[2024-11-08 19:28] LABS: Alanine Aminotransferase 23 U/L (0-40); Albumin Level 4.0 g/dL (3.5-5.0); Alkaline Phosphatase 80 U/L (39-117); Anion Gap 12 (12-20); Aspartate Amino Transferase 29 U/L (5-37); Blood Urea Nitrogen 15 mg/dL (9-16); Calcium 9.0 mg/dL (8.4-10.2); Carbon Dioxide 30 mmol/L (22-29); Chloride 103 mmol/L (96-108); Estimated Glomerular Filt Rate > 60; Potassium 3.9 mmol/L (3.3-5.1); Sodium 141 mmol/L (135-145); Total Protein 7.1 g/dL (6.5-8.0)
[2024-11-08 19:37] LABS: Thyroid Stimulating Hormone 2.58 uIU/mL (0.32-4.0)
[2024-11-09 07:59] LABS: Syphilis Screen Nonreactive (Nonreactive)
[2024-11-09 08:20] LABS: ~HepC Num1 0.13 S/CO (0.00-0.79); ~Hepatitis C Antibody Nonreactive (Nonreactive)
[2024-11-16 08:41] LABS: HIV 1 Antibody NEGATIVE; HIV 2 Antibody NEGATIVE
== END 2024-11-08 14:33 | disposition home or self-care (01) ==
LOC: HO.MANLDS 14:32
PROVIDERS: Visit Provider Internal Medicine
DX: R41.3 Other amnesia (principal); Z20.2 Contact with and (suspected) exposure to infections with a predominantly sexual mode of transmission; Z11.3 Encounter for screening for infections with a predominantly sexual mode of transmission; Z11.59 Encounter for screening for other viral diseases; Z11.4 Encounter for screening for human immunodeficiency virus [HIV]
CPT/HCPCS: 36415; 80053; 84443; 85025; 85652; 86701; 86702; 86780; 86803